=== PATIENT | male | born 1970 | race Hispanic/Latino ===

== ENCOUNTER 2019-02-09 06:51 | Emergency (ER) | payer SELFPAY ==
[2019-02-09] MEDS ORDERED: LEVALBUTEROL 1.25 MG/3 ML NEB ONE (07:33)
[2019-02-09] MEDS ORDERED: ACETAMINOPHEN 500 MG TAB ONE (07:33)
[2019-02-09] MEDS ORDERED: KETOROLAC 30 MG/ML INJ ONE (07:33)
[2019-02-09 07:38] LABS: Absolute Monocytes 0.7 K/uL (0.1-1.3); Absolute Neutrophil 5.9 K/uL (1.8-8.0); Basophils % 0.8 % (0-1.3); Eosinophils % 2.1 % (0-4.4); Hematocrit 45.5 % (39.6-49.0); MPV 10.1 fL (7.6-11.3); Monocytes % 7.5 % (3.3-12.3)
[2019-02-09 07:54] LABS: Protime INR 0.97
[2019-02-09 08:01] LABS: ALT/SGPT 34 U/L (12-78); AST/SGOT 23 U/L (15-37); Albumin 3.8 g/dL (3.4-5.0); Alkaline Phosphatase 101 U/L (45-117); BUN Blood Urea Nitrogen 19 mg/dL (7-18); Bicarbonate 27 mmol/L (21-32); Bilirubin Direct < 0.1 mg/dL (0-0.2); Bilirubin Total 0.3 mg/dL (0.2-1.0); Glucose Level 124 mg/dL (74-106); NT PRO-BNP 73 pg/mL (<125); Protein, Total 7.7 g/dL (6.4-8.2); Sodium Level 141 mmol/L (136-145); Troponin (Emerg Dept Use Only) < 0.02 ng/mL (0.0-0.045)
[2019-02-09] MEDS ORDERED: LISINOPRIL 20 MG TAB ONE (08:02)
--- NOTE | 2019-02-09 08:21 | RAD REPORT ---
EXAM DESCRIPTION: RAD - Chest Pa And Lat (2 Views) - 02/09/2019 7:50 am CLINICAL HISTORY: cough. chest pain Chest pain. COMPARISON: Chest Single View dated 12/14/2016; Chest Single View dated 12/13/2016; Chest Pa And Lat ( 2 Views) dated 04/24/2016; Chest Pa And Lat (2 Views) dated 02/20/2016 FINDINGS: The lungs are clear. The heart is mildly enlarged in size. No displaced fractures. Hardwar e plate is present in the cervical spine.
--- NOTE | 2019-02-09 09:12 | RAD REPORT ---
EXAM DESCRIPTION: CT - Thorax W/ Con CLINICAL HISTORY: Chest pain chest pain COMPARISON: CT CHEST ABD PELVIS WO CONT dated 05/25/2014; Head C Spine Cap Wo Con dated 05/15/2017 FINDINGS: The lungs are clear. No pleural thickening or pleural effusion. No pneumothorax. Small tavares unt of pericardial fluid is seen. No axillary, mediastinal or hilar adenopathy. No rib fracture evident, however the inferior most aspect of the rib cage is not included on this salvador dy. Mild fatty liver is seen All CT scans are performed using dose optimization technique as appropriate and may include automated exposure control or mA/KV adjustment according to patient size. IMPRESSION: No acute abnormality is detected.
[2019-02-09] MEDS ORDERED: FENTANYL CITR 100 MCG/2 ML ONE (09:20)
[2019-02-09] MEDS ORDERED: DIAZEPAM 10 MG/2 ML INJ SYRINGE ONE (09:21)
--- NOTE | 2019-02-09 09:26 | EDPHYS ---
Physician Documentation [facility] Name: Seven Presley Age: 48 yrs Sex: Male : 1970 Arrival Date: 02/09/2019 Time: 06:51 Bed 13 Private MD: ED Physician Bhanu Harris HPI: 02/09 07:22 This 48 yrs old Male presents to ER via Ambulatory with complaints of wa Shortness Of Breath, Cough, Rib Pain. 07:22 The patient has shortness of breath with cough. states has been dealing with cough and wa congestion x 1 week. now sharp pain L side with deep breathing after hearing a "pop" sound when coughed deeply last night. otherwise denies chest pain. denies dizziness. denies fever. cough is productive of yellow sputum. denies SOB to me. describes painful respiration on L side. Onset: The symptoms/episode began/occurred 1 week(s) ago. Duration: The symptoms are continuous, and are steadily getting worse. The patient's shortness of breath is aggravated by coughing, is alleviated by nothing. Associated signs and symptoms: Pertinent positives: productive cough, Pertinent negatives: chest pain, diaphoresis, dizziness, fever, hemoptysis, loss of consciousness, vomiting. Severity of symptoms: At their worst the symptoms were moderate in the emergency department the symptoms are worse moderately. The patient has experienced a previous episode, last year. The patient has not recently seen a physician, does not have PCP. . Historical: - Allergies: 07:07 Keflex; tw2 07:07 Codeine; tw2 - PMHx: 07:07 GERD; Hypertension; tw2 - PSHx: 07:07 Neck sx (2007); Appendectomy; tw2 - Immunization history:: Adult Immunizations. - Social history:: Smoking status: Patient uses tobacco products, smokes one-half pack cigarettes per day. - Ebola Screening: : Patient denies travel to an Ebola-affected area in the 21 days before illness onset. - Family history:: pertinent for hypertension. - Hospitalizations: : No recent hospitalization is reported. ROS: 07:28 Constitutional: Negative for fever, chills, and weight loss, Eyes: Negative for injury, wa pain, redness, and discharge, ENT: Negative for injury, pain, and discharge, Neck: Negative for injury, pain, and swelling, Abdomen/GI: Negative for abdominal pain, nausea, vomiting, diarrhea, and constipation, Back: Negative for injury and pain, : Negative for injury, bleeding, discharge, and swelling, MS/Extremity: Negative for injury and deformity, Skin: Negative for injury, rash, and discoloration, Neuro: Negative for headache, weakness, numbness, tingling, and seizure, Psych: Negative for depression, anxiety, suicide ideation, homicidal ideation, and hallucinations. 07:28 Cardiovascular: Negative for chest pain, orthopnea, palpitations, paroxysmal nocturnal dyspnea. 07:28 Respiratory: Positive for cough, with yellow sputum, pleurisy, of the left lower chest, Negative for shortness of breath. 07:28 All other systems are negative. Exam: 07:29 Head/Face: Normocephalic, atraumatic. Eyes: Pupils equal round and reactive to light, wa extra-ocular motions intact. Lids and lashes normal. Conjunctiva and sclera are non-icteric and not injected. Cornea within normal limits. Periorbital areas with no swelling, redness, or edema. ENT: Nares patent. No nasal discharge, no septal abnormalities noted. Tympanic membranes are normal and external auditory canals are clear. Oropharynx with no redness, swelling, or masses, exudates, or evidence of obstruction, uvula midline. Mucous membranes moist. Neck: Trachea midline, no thyromegaly or masses palpated, and no cervical lymphadenopathy. Supple, full range of motion without nuchal rigidity, or vertebral point tenderness. No Meningismus. Cardiovascular: Regular rate and rhythm with a normal S1 and S2. No gallops, murmurs, or rubs. Normal PMI, no JVD. No pulse deficits. Abdomen/GI: Soft, non-tender, with normal bowel sounds. No distension or tympany. No guarding or rebound. No evidence of tenderness throughout. Back: No spinal tenderness. No costovertebral tenderness. Full range of motion. Skin: Warm, dry with normal turgor. Normal color with no rashes, no lesions, and no evidence of cellulitis. MS/ Extremity: Pulses equal, no cyanosis. Neurovascular intact. Full, normal range of motion. Neuro: Awake and alert, GCS 15, oriented to person, place, time, and situation. Cranial nerves II-XII grossly intact. Motor strength 5/5 in all extremities. Sensory grossly intact. Cerebellar exam normal. Normal gait. Psych: Awake, alert, with orientation to person, place and time. Behavior, mood, and affect are within normal limits. 07:29 Constitutional: The patient appears alert, obese male. appears to be in pain. splints with deep breathing 07:29 Chest/axilla: Inspection: normal, Palpation: crepitus, is not appreciated, tenderness, that is moderate, of the left laterral lower chest wall, that totally reproduces the patient's complaints. 07:29 Cardiovascular: Rate: normal, Rhythm: regular, Pulses: no pulse deficits are appreciated, Heart sounds: normal, Edema: 1+ edema to level of left midcalf, left ankle, left foot, right midcalf, right ankle and right foot. 07:29 Respiratory: the patient does not display signs of respiratory distress, Respirations: splinting, that is mild, Breath sounds: diminished bilaterally due to poor inspiratory effort, Respiratory rate: normal Vital Signs: 07:05 BP 178 / 108; Pulse 78; Resp 18; Temp 97.9(O); Pulse Ox 97% on R/A; Weight 136.08 kg; tw2 Height 5 ft. 7 in. (170.18 cm) (R); Pain 10/10; 08:01 BP 138 / 82; Pulse 92; Resp 15; Pulse Ox 100% on Nebulizer Mask; tw2 09:23 BP 138 / 88; Pulse 91; Resp 19; Pulse Ox 95% on R/A; tw2 07:05 Body Mass Index 46.99 (136.08 kg, 170.18 cm) tw2 MDM: 07:09 Patient medically screened. md 07:31 Differential diagnosis: r/o pna. consider rib fracture. non-adherent to BP meds, pedal wa edema, will check to r/o heart failure. 08:27 Data reviewed: vital signs, nurses notes, lab test result(s), radiologic studies. 09:19 Test interpretation: by ED physician or midlevel provider: EKG: HR 92. nml axis. normal wa rhythm. no LVH changes noted. no obvious dysrhythmic changes. CXR: mild cardiomegaly, per rad. CT chest. No acute findings. Labs noted essentially within nml limits. . Response to treatment: the patient's symptoms have markedly improved after treatment, pain improved with meds in ED. chest wall strain with violent cough. will cover with bronchitis. pain control prn. BP improved with dose po in ED. will re-start his lisinopril for bp. Advised to quit smoking cigarettes. 02/09 07:20 Order name: BMP; Complete Time: 08:02 02/09 07:20 Order name: CBC with Diff; Complete Time: 08:04 02/09 07:20 Order name: Hepatic Function; Complete Time: 08:04 02/09 07:20 Order name: NT PRO-BNP; Complete Time: 08:04 02/09 07:20 Order name: PT-INR; Complete Time: 08:04 02/09 07:20 Order name: Troponin (emerg Dept Use Only); Complete Time: 08:02/09 07:20 Order name: XRAY Chest Pa And Lat (2 Views); Complete Time: 08:02/09 08:31 Order name: CT Chest W/ Con; Complete Time: 09:19 02/09 09:10 Order name: Urine Dipstick--Ancillary (enter results) 02/09 07:20 Order name: EKG; Complete Time: 07:20 02/09 07:20 Order name: Cardiac monitoring; Complete Time: 07:33 02/09 07:20 Order name: EKG - Nurse/Tech; Complete Time: 07:33 02/09 07:20 Order name: IV Saline Lock; Complete Time: 07:33 02/09 07:20 Order name: Labs collected and sent; Complete Time: 07:34 02/09 07:20 Order name: O2 Sat Monitoring; Complete Time: 07:34 02/09 07:21 Order name: Urine Dipstick-Ancillary (obtain specimen); Complete Time: 09:24 md Administered Medications: 07:30 Drug: Tylenol 1000 mg Route: PO; tw 09:25 Follow up: Response: No adverse reaction 07:33 Drug: TORadol 30 mg Route: IVP; Site: right wrist; tw 09:07 Follow up: Response: No adverse reaction; Pain is unchanged, physician notified 2 07:59 Drug: Xopenex 1.25 mg Route: Inhalation; 2 07:59 Drug: Lisinopril 20 mg Route: PO; tw2 09:25 Follow up: Response: No adverse reaction tw2 09:15 Drug: fentaNYL (PF) 25 mcg Route: IVP; Site: right wrist; tw2 09:53 Follow up: Response: No adverse reaction; Pain is decreased tw2 09:16 Drug: Valium 2 mg Route: IVP; Site: right wrist; tw2 09:53 Follow up: Response: No adverse reaction tw2 Disposition: 02/09/19 09:24 Discharged to Home. Impression: Acute Left Chest wall/Rib cage Strain, Acute Bronchitis, Uncontrolled Hypertension. - Condition is Stable. - Discharge Instructions: Chest Wall Pain, [id number], Acute Bronchitis, [id number], Hypertension, [id number]. - Prescriptions for Ibuprofen 600 mg Oral Tablet - take 1 tablet by ORAL route every 8 hours As needed take with food; 30 tablet. Valium 2 mg Oral Tablet - take 1 tablet by ORAL route At bedtime As needed; 3 tablet. Zithromax Z- Phil 250 mg Oral Tablet - take 1 tablet by ORAL route as directed for 5 days Day 1 - take two (2) tablets one time. Day 2, 3, 4 , 5 take one (1) tablet once daily.; 6 tablet. Prednisone 20 mg Oral Tablet - take 2 tablet by ORAL route once daily for 5 days; 10 tablet. Albuterol Sulfate 90 mcg/actuation - inhale 1-2 puff by INHALATION route every 4-6 hours; 1 Inhaler. Lisinopril 20 mg Oral Tablet - take 1 tablet by ORAL route once daily; 90 tablet. - Medication Reconciliation Form, Thank You Letter, Antibiotic Education, Prescription Opioid Use form. - Follow up: Ishaan Tipton DO; When: 2 - 3 days; Reason: Recheck today's complaints. - Problem is new. - Symptoms have improved. - Notes: quit smoking. take medication as prescribed. take lisinopril. see your doctor for further management. return here immediately for any worsening concerns you may have Signatures: Dispatcher [employer] Medina Flores RN RN tw2 Bhanu Harris MD MD wa Corrections: (The following items were deleted from the chart) 09:54 09:24 02/09/2019 09:24 Discharged to Home. Impression: Acute Left Chest wall/Rib cage tw2 Strain; Acute Bronchitis; Uncontrolled Hypertension. Condition is Stable. Forms are Medication Reconciliation Form, Thank You Letter, Antibiotic Education, Prescription Opioid Use. Follow up: Ishaan Tipton; When: 2 - 3 days; Reason: Recheck today's complaints. Problem is new. Symptoms have improved. wa
--- NOTE | 2019-02-09 09:26 | ER ---
Nurse's Notes [facility] Name: Seven Presley Age: 48 yrs Sex: Male : 1970 Arrival Date: 02/09/2019 Time: 06:51 Bed 13 Private MD: Diagnosis: Acute Left Chest wall/Rib cage Strain;Acute Bronchitis;Uncontrolled Hypertension Presentation: 02/09 07:03 Presenting complaint: Patient states: I have been having a cough and congestion for a tw2 few days, but last night around midnight i coughed really hard and i felt a crunch, like my rib is broken or something. Transition of care: patient was not received from another setting of care. Onset of symptoms was February 09, 2019. Risk Assessment: Do you want to hurt yourself or someone else? Patient reports no desire to harm self or others. Initial Sepsis Screen: Does the patient meet any 2 criteria? No. Patient's initial sepsis screen is negative. Does the patient have a suspected source of infection? No. Patient's initial sepsis screen is negative. Care prior to arrival: None. 07:03 Method Of Arrival: Ambulatory tw2 07:19 Acuity: JUANITA 3 tw2 Triage Assessment: 07:07 General: Appears uncomfortable, obese, Behavior is cooperative. Pain: Complains of pain tw2 in LEFT RIBS. EENT: Reports nasal congestion nasal discharge. Neuro: Level of Consciousness is awake, alert, obeys commands. Cardiovascular: Patient's skin is warm and dry. Respiratory: Reports cough that is Airway is patent Respiratory effort is even, unlabored, Respiratory pattern is regular, symmetrical, Onset: The symptoms/episode began/occurred "midnight", the patient has moderate shortness of breath. GI: Abdomen is round non-distended, obese. : No signs and/or symptoms were reported regarding the genitourinary system. Derm: No signs and/or symptoms reported regarding the dermatologic system. Musculoskeletal: Range of motion: intact in all extremities. Historical: - Allergies: 07:07 Keflex; tw2 07:07 Codeine; tw2 - PMHx: 07:07 GERD; Hypertension; tw2 - PSHx: 07:07 Neck sx (2007); Appendectomy; tw2 - Immunization history:: Adult Immunizations. - Social history:: Smoking status: Patient uses tobacco products, smokes one-half pack cigarettes per day. - Ebola Screening: : Patient denies travel to an Ebola-affected area in the 21 days before illness onset. - Family history:: pertinent for hypertension. - Hospitalizations: : No recent hospitalization is reported. Screenin:05 Abuse screen: Denies threats or abuse. Nutritional screening: No deficits noted. tw2 Tuberculosis screening: No symptoms or risk factors identified. Fall Risk None identified. Assessment: 06:57 Reassessment: pt name called in [employer], registration staff told me he went to his car to 2 get his phone. 07:14 Cardiovascular: Rhythm is regular. Respiratory: Airway is patent Respiratory effort is tw2 even, unlabored, Respiratory pattern is regular, symmetrical, Breath sounds are clear. 08:00 Reassessment: No changes from previously documented assessment. Patient and/or family tw2 updated on plan of care and expected duration. Pain level reassessed. Patient is alert, oriented x 3, equal unlabored respirations, skin warm/dry/pink. provider notified Patient states symptoms have not improved. 09:24 Reassessment: Patient appears in no apparent distress at this time. Patient and/or tw2 family updated on plan of care and expected duration. Pain level reassessed. Patient is alert, oriented x 3, equal unlabored respirations, skin warm/dry/pink. Vital Signs: 07:05 BP 178 / 108; Pulse 78; Resp 18; Temp 97.9(O); Pulse Ox 97% on R/A; Weight 136.08 kg; tw2 Height 5 ft. 7 in. (170.18 cm) (R); Pain 10/10; 08:01 BP 138 / 82; Pulse 92; Resp 15; Pulse Ox 100% on Nebulizer Mask; tw2 09:23 BP 138 / 88; Pulse 91; Resp 19; Pulse Ox 95% on R/A; tw2 07:05 Body Mass Index 46.99 (136.08 kg, 170.18 cm) tw2 ED Course: 06:51 Patient arrived in ED. ds1 07:00 Bed in low position. Call light in reach. tw2 07:00 Pulse ox on. NIBP on. tw2 07:00 director zone on. tw2 07:03 Medina Hurst RN is Primary Nurse. tw2 07:04 Triage completed. tw2 07:05 Arm band placed on. tw2 07:09 Bhanu Harris MD is Attending Physician. wa 07:29 Radiology exam delayed due to IV insertion attempt and/or patient not having jb2 appropriate IV at this time. 07:30 Inserted saline lock: 22 gauge in right wrist, using aseptic technique. Blood tw2 collected. Missed attempt(s): 22 gauge in right antecubital area. Bleeding controlled, band aid applied, catheter tip intact. 07:43 Patient moved to radiology via wheelchair. jb2 07:48 XRAY Chest Pa And Lat (2 Views) In Process Unspecified. EDMS 07:49 X-ray completed. Patient tolerated procedure well. Patient moved back from radiology. jb2 08:14 EKG done, by nuclear worker technician. reviewed by Bhanu Harris MD. at1 08:46 CT completed. Patient tolerated procedure well. Patient moved to CT via wheelchair. jg6 Patient moved back from CT. 08:51 CT Chest W/ Con In Process Unspecified. EDMS 09:23 Ishaan Tipton DO is Referral Physician. wa 09:25 Awaiting transportation, Awaiting: prior to discharge. tw2 09:54 No provider procedures requiring assistance completed. IV discontinued, intact, tw2 bleeding controlled, No redness/swelling at site. Pressure dressing applied. Administered Medications: 07:30 Drug: Tylenol 1000 mg Route: PO; tw2 09:25 Follow up: Response: No adverse reaction tw2 07:33 Drug: TORadol 30 mg Route: IVP; Site: right wrist; tw2 09:07 Follow up: Response: No adverse reaction; Pain is unchanged, physician notified tw2 07:59 Drug: Xopenex 1.25 mg Route: Inhalation; tw2 07:59 Drug: Lisinopril 20 mg Route: PO; tw2 09:25 Follow up: Response: No adverse reaction tw2 09:15 Drug: fentaNYL (PF) 25 mcg Route: IVP; Site: right wrist; tw2 09:53 Follow up: Response: No adverse reaction; Pain is decreased tw2 09:16 Drug: Valium 2 mg Route: IVP; Site: right wrist; tw2 09:53 Follow up: Response: No adverse reaction tw2 Outcome: 09:24 Discharge ordered by . wa 09:54 Discharged to home ambulatory, with family. tw2 09:54 Condition: stable 09:54 Discharge instructions given to patient, family, Instructed on discharge instructions, follow up and referral plans. no drinking with medication, no driving heavy equipment, medication usage, Demonstrated understanding of instructions, follow-up care, medications, Prescriptions given X 6 09:54 Patient left the ED. Signatures: Dispatcher [employer] EDMS Jaylen De La Rosa jb2 Rebecca Cadena ds1 Chastity Bender, customer service advisor EKG Tat1 Medina Hurst RN RN tw2 Bhanu Harris MD MD wa Garcia, Jessica jg6 Corrections: (The following items were deleted from the chart) 07:14 07:00 Pulse ox on. NIBP on. 07:19 07:03 Acuity: JUANITA 4
[2019-02-09 10:04] VITALS: TEMP 97.9
[2019-02-09 10:09] VITALS: BP 138/88; O2SAT 95
[2019-02-09 12:13] LABS: Urine Blood NEGATIVE (NEG); Urine Glucose NEGATIVE (NEG); Urine Protein NEGATIVE (NEG)
--- NOTE | 2019-02-09 17:17 | EKG ---
Test Date: 2019-02-09 Test Time: 08:09:47 Human Factors Specialist: DANE MEASUREMENT RESULTS: Intervals: Rate: 92 CA: 128 QRSD: 84 QT: 358 QTc: 442 [place]: P: 57 CA: 128 QRS: 55 T: 62 INTERPRETIVE STATEMENTS: Normal sinus rhythm Normal ECG Compared to ECG 05/15/2017 02:02:27 No significant changes Electronically Signed On 02-09-19 17:14:59 CDT by Jhonny Barajas
== END 2019-02-09 09:54 | disposition home or self-care (01) ==
LOC: ER 06:51
DX: J20.9 Acute bronchitis, unspecified (principal); S29.011A Strain of muscle and tendon of front wall of thorax, initial encounter; I10 Essential (primary) hypertension; F17.210 Nicotine dependence, cigarettes, uncomplicated; Z88.1 Allergy status to other antibiotic agents; Z88.5 Allergy status to narcotic agent
CPT/HCPCS: 36415; 71046; 71260; 80048; 80076; 81003; 83880; 84484; 85025; 85610; 93005; 96374; 96375; 99285; J3010; J3360; Q9967

== ENCOUNTER 2023-09-12 11:37 | Emergency (ER) | payer OTHER, SELFPAY ==
--- OUTSIDE RECORDS SUMMARY | 2023-09-12 11:40 | XMS REPORT | Continuity of Care Document ---
:1970 Author Organization [facility] t Address [address] [place] [address] Care Team Providers Name Role Phone Unavailable Unavailable Unavailable Problems This patient has no known problems. Allergies, Adverse Reactions, Alerts This patient has no known allergies or adverse reactions. Medications This patient has no known medications. Procedures This patient has no known procedures. Encounters Start End Encounter Admission Attending Care Care Encounter Source Date/Time Date/Time Type Type Clinicians Facility Department ID 2023-06-27 2023-06-27 Outpatient [facility] [id number] [place] 10:17:40 10:17:40 [id number] F Yoni 2023-04-26 2023-04-26 Outpatient [facility] [id number] [place] 13:15:44 13:15:44 [id number] F Yoni 2023-03-29 2023-03-29 Outpatient [facility] [id number] [place] 12:35:41 12:35:41 [id number] F Yoni Results This patient has no known results.
[2023-09-12] MEDS ORDERED: KETOROLAC 30 MG/ML INJ ONE (12:10)
[2023-09-12] MEDS ORDERED: HYDROCODONE/APAP 5/325 MG TAB ONE (12:10)
--- NOTE | 2023-09-12 13:01 | RAD REPORT ---
EXAM DESCRIPTION: RAD - Ankle Left 3 View -09/12/2023 12:54 pm CLINICAL HISTORY: Left ankle pain status post injury FINDINGS: No fracture or dislocation is seen.
--- NOTE | 2023-09-12 13:04 | RAD REPORT ---
EXAM DESCRIPTION: RAD - Knee Left 3 View - 09/12/2023 12:54 pm CLINICAL HISTORY: Left knee pain FINDINGS: A 2 millimeter bony/calcific density adjacent to the medial femoral condyle probably chron ic. Clinical correlation is needed see patient has point tenderness to suggest an acute avulsion frac ture No dislocation Moderate osteoarthritis If the patient continues to have symptoms to suggest an occult fracture, tendon, ligamentous or menis nolan injury then MRI would recommended
--- NOTE | 2023-09-12 14:38 | EDPHYS ---
Physician Documentation [facility] Name: Seven Presley Age: 53 yrs Sex: Male : 1970 Arrival Date: 09/12/2023 Time: 11:37 Bed 17 Private MD: AYSHA Physician Hugh Diaz HPI: 09/13 08:06 This 53 yrs old Male presents to ER via Wheelchair with complaints of Knee sb4 Pain, Fall Injury. 08:06 patient was walking when he slipped and fell. he states he twisted/hyperflexed his left sb4 ankle and landed onto his left knee sustaining an abrasion. he states that he cannot bear weight on his left foot. complaining of pain to left foot and left ankle. no other associated signs and symptoms. Historical: - Allergies: 09/12 11:52 Codeine; hb 11:52 Keflex; hb - PMHx: 11:52 GERD; Hypertension; hb - Immunization history:: Adult Immunizations up to date. - Social history:: Smoking status: . ROS: 09/13 08:06 Constitutional: Negative for fever, chills, and weight loss, sb4 MS/extremity: Positive for injury or acute deformity, decreased range of motion, swelling, tenderness, of the anterior aspect of left ankle, Skin: Positive for abrasion(s), of the left knee, All other systems are negative, Exam: 08:06 Constitutional: This is a well developed, well nourished patient who is awake, alert, sb4 and in no acute distress. Head/Face: Normocephalic, atraumatic. Eyes: Extra-ocular motions intact. Periorbital areas with no swelling, redness, or edema. ENT: Mucous membranes moist. Neuro: Awake and alert, GCS 15, oriented to person, place, time, and situation. Motor strength 5/5 in all extremities. Sensory grossly intact. 08:06 Musculoskeletal/extremity: ROM: limited active range of motion due to pain, limited passive range of motion due to pain, in the anterior aspect of left ankle, Circulation is intact in all extremities. Pulses: are normal with no appreciated deficits, Perfusion: the patient is normally perfused throughout, Perfusion: the extremity is normally perfused throughout, Sensation intact. Joints: the left ankle displays painful range of motion, swelling, tenderness, Weight bearing: can bear weight with assistance only, uses crutches, 08:06 Skin: injury, abrasion(s), moderate sized abrasion noted, of the left knee, Vital Signs: 09/12 11:51 BP 148 / 87; Pulse 83; Resp 16; Temp 97.3(TE); Pulse Ox 97% on R/A; Weight 112.04 kg; hb Height 5 ft. 8 in. ; Pain 10/10; 14:39 Pain 7/10; nj1 14:40 Pain 7/10; nj1 14:45 BP 150 / 101; Pulse 74; Resp 18; Pulse Ox 100% ; Pain 7/10; nj1 15:30 BP 159 / 92; Pulse 74; Resp 18; Pulse Ox 100% ; Pain 6/10; nj1 11:51 Body Mass Index 37.56 (112.04 kg, 172.72 cm) hb 11:51 Pain Scale: Adult hb 14:39 Pain Scale: Adult nj1 14:40 Pain Scale: Adult nj1 14:45 Pain Scale: Adult nj1 15:30 Pain Scale: Adult nj1 MDM: 11:53 Patient medically screened. sb4 09/13 08:06 Differential diagnosis: abrasion, contusion, fracture, laceration, sprain, strain. Data sb4 reviewed: vital signs, nurses notes, radiologic studies, and as a result, I will discharge patient. Independent interpretation of the following test(s) in the Emergency Department X-Ray: My interpretation is my interpretation of the ankle and knee xray images are no acute fracture or dislocation. Counseling: I had a detailed discussion with the patient and/or guardian regarding the historical points, exam findings, and any diagnostic results supporting the discharge/admit diagnosis, radiology results, the need for outpatient follow up, a orthopedic surgeon, to return to the emergency department if symptoms worsen or persist or if there are any questions or concerns that arise at home. 09/12 11:54 Order name: Ankle Left 3 View XRAY; Complete Time: 13:03 sb4 09/12 11:54 Order name: Knee Left 3 View XRAY; Complete Time: 13:05 sb4 09/12 11:54 Order name: Wound Care; Complete Time: 15:39 sb4 09/12 13:05 Order name: Aircast Ankle Splint; Complete Time: 14:39 sb4 09/12 14:16 Order name: Ice pack; Complete Time: 14:39 sb4 09/12 16:09 Order name: Crutches; Complete Time: 16:09 nj1 Administered Medications: 09/12 12:03 Drug: Ketorolac IM 30 mg IM once Route: IM; Site: right deltoid; hb 14:40 Follow up: Pain 710 Adult; Response: No adverse reaction; Pain is decreased nj1 12:03 Drug: HYDROcodone-acetaminophen PO 5 mg-325 mg 2 tabs PO once Route: PO; hb 14:39 Follow up: Pain 710 Adult; Response: No adverse reaction; Pain is decreased nj1 Disposition Summary: 09/12/23 14:37 Discharge Ordered Notes: Location: Home sb4 Problem: new sb4 Symptoms: have improved sb4 Condition: Stable sb4 Diagnosis - Sprain of unspecified ligament of left ankle, initial encounter sb4 - Contusion of left knee sb4 Followup: sb4 - With: Christopher Leonard MD - When: As needed - Reason: Further diagnostic work-up, Recheck today's complaints, Re-evaluation by your physician Discharge Instructions: - Discharge Summary Sheet sb4 - Ankle Sprain, [id number] sb4 Forms: - Work release form sb4 - Medication Reconciliation Form sb4 - Thank You Letter sb4 - Antibiotic Education sb4 - Prescription Opioid Use sb4 - Patient Portal Instructions sb4 - Leadership Thank You Letter sb4 Prescriptions: - meloxicam 15 mg Oral tablet - take 1 tablet ORAL route daily; 14 tablet; Refills: 0, Product Selection sb4 Permitted Signatures: Dispatcher [employer] Monae Simmons RN RN Sharonda Melchor PA-C PA-C sb4 Katharina Story RN RN nj1 Corrections: (The following items were deleted from the chart) 11:52 11:52 Allergies: Cephalexin Monohydrate; hb hb
--- NOTE | 2023-09-12 14:38 | ER ---
Nurse's Notes [facility] Name: Seven Presley Age: 53 yrs Sex: Male : 1970 Arrival Date: 09/12/2023 Time: 11:37 Bed 17 Private MD: Diagnosis: Sprain of unspecified ligament of left ankle, initial encounter;Contusion of left knee Presentation: 09/12 11:51 Chief complaint: Left foot and ankle pain after mechanical fall from standing this morning. Coronavirus screen: At this time, the client does not indicate any symptoms associated with coronavirus-19. Ebola Screen: No symptoms or risks identified at this time. Initial Sepsis Screen: Does the patient meet any 2 criteria? No. Patient's initial sepsis screen is negative. Does the patient have a suspected source of infection? No. Patient's initial sepsis screen is negative. Risk Assessment: Do you want to hurt yourself or someone else? Patient reports no desire to harm self or others. Onset of symptoms was September 12, 2023. 11:51 Method Of Arrival: Wheelchair hb 11:51 Acuity: JUANITA 4 hb Historical: - Allergies: 11:52 Codeine; hb 11:52 Keflex; hb - PMHx: 11:52 GERD; Hypertension; hb - Immunization history:: Adult Immunizations up to date. - Social history:: Smoking status: . Screenin:46 [facility] ED Fall Risk Assessment (Adult) Score/Fall Risk Level 0 - 2 = Low Risk nj1 Oriented to surroundings, Maintained a safe environment, Hourly rounding (assess needs \T\ fall precautionary measures) done. Abuse screen: Denies threats or abuse. Denies injuries from another. Nutritional screening: No deficits noted. Tuberculosis screening: No symptoms or risk factors identified. Assessment: 14:40 General: Appears in no apparent distress. uncomfortable, Behavior is calm, cooperative, nj1 appropriate for age. Pain: Complains of pain in left knee and ankle Pain currently is 7 out of 10 on a pain scale. 14:40 Neuro: Level of Consciousness is awake, alert, obeys commands, Oriented to person, nj1 place, time, situation. Cardiovascular: Patient's skin is warm and dry. Respiratory: Airway is patent Respiratory effort is even, unlabored. Musculoskeletal: Reports pain in left ankle. 15:45 Reassessment: Patient appears in no apparent distress at this time. Patient and/or nj1 family updated on plan of care and expected duration. Pain level reassessed. Patient is alert, oriented x 3, equal unlabored respirations, skin warm/dry/pink. Vital Signs: 11:51 BP 148 / 87; Pulse 83; Resp 16; Temp 97.3(TE); Pulse Ox 97% on R/A; Weight 112.04 kg; hb Height 5 ft. 8 in. ; Pain 10/10; 14:39 Pain 7/10; nj1 14:40 Pain 7/10; nj1 14:45 BP 150 / 101; Pulse 74; Resp 18; Pulse Ox 100% ; Pain 7/10; nj1 15:30 BP 159 / 92; Pulse 74; Resp 18; Pulse Ox 100% ; Pain 6/10; nj1 11:51 Body Mass Index 37.56 (112.04 kg, 172.72 cm) hb 11:51 Pain Scale: Adult hb 14:39 Pain Scale: Adult nj1 14:40 Pain Scale: Adult nj1 14:45 Pain Scale: Adult nj1 15:30 Pain Scale: Adult nj1 ED Course: 11:42 Patient arrived in ED. hb 11:47 Sharonda Verma PA-C is PHCP. sb4 11:47 Hugh Diaz MD is Attending Physician. sb4 11:52 Triage completed. hb 11:52 Arm band placed on. hb 12:56 Ankle Left 3 View XRAY In Process Unspecified. EDMS 12:56 Knee Left 3 View XRAY In Process Unspecified. EDMS 14:17 Katharina Story, JOSE ANTOINO is Primary Nurse. nj1 14:37 Christopher Leonard MD is Referral Physician. sb4 14:40 Air stirrup applied to left ankle. nj1 14:46 Patient has correct armband on for positive identification. Bed in low position. Call nj1 light in reach. Provided Education on: call light, fall precautions. 14:46 No provider procedures requiring assistance completed. Patient did not have IV access nj1 during this emergency room visit. 15:40 Wound care: to abrasion, located on left knee was cleaned with Hibiclens, dressed with nj1 band aid, Patient tolerated well. 15:45 Crutch training done. nj1 Administered Medications: 12:03 Drug: Ketorolac IM 30 mg IM once Route: IM; Site: right deltoid; hb 14:40 Follow up: Pain 7/10 Adult; Response: No adverse reaction; Pain is decreased nj1 12:03 Drug: HYDROcodone-acetaminophen PO 5 mg-325 mg 2 tabs PO once Route: PO; hb 14:39 Follow up: Pain 7/10 Adult; Response: No adverse reaction; Pain is decreased nj1 Medication: 14:46 VIS not applicable for this client. nj1 Outcome: 14:37 Discharge ordered by . irma 15:50 Discharged to home via wheelchair, with crutches, with family, nj1 15:50 Condition: stable 15:50 Discharge instructions given to patient, Instructed on discharge instructions, follow up and referral plans. safety practices, crutch walking, wound care, Demonstrated understanding of instructions, follow-up care, medications, wound care, crutch walking, splint care, Prescriptions given X 1, 16:11 Patient left the ED. nj1 Signatures: Dispatcher [employer] EDMS Monae Mckinnon RN RN Sharonda Melchor PA-C PA-Katharina Gibson RN RN nj1 Corrections: (The following items were deleted from the chart) 11:52 11:52 Allergies: Cephalexin Monohydrate; hb hb 11:53 11:51 BP 148 / 87; Pulse 83bpm; Resp 16bpm; Pulse Ox 97% RA; Temp 97.3F Temporal; Pain hb 8/10, Adult; hb
[2023-09-12 17:03] VITALS: TEMP 97.3
[2023-09-12 17:08] VITALS: O2SAT 100
[2023-09-12 17:10] VITALS: BP 159/92
== END 2023-09-12 16:11 | disposition home or self-care (01) ==
LOC: ER 11:37
DX: S93.402A Sprain of unspecified ligament of left ankle, initial encounter (principal); S80.02XA Contusion of left knee, initial encounter; I10 Essential (primary) hypertension; K21.9 Gastro-esophageal reflux disease without esophagitis; W01.0XXA Fall on same level from slipping, tripping and stumbling without subsequent striking against object, initial encounter; Y93.9 Activity, unspecified; Y92.9 Unspecified place or not applicable; Z88.5 Allergy status to narcotic agent; Z88.1 Allergy status to other antibiotic agents
CPT/HCPCS: 96372; 99284